=== PATIENT | female | born 1965 | race African-American/Black ===

== ENCOUNTER → 2020-04-19 | Outpatient (CLI) | payer BC ==
--- NOTE | 2020-04-24 12:01 | SLEEP ---
DATE OF STUDY: 04/19/2020 HOME SLEEP STUDY REFERRING PHYSICIAN: Dr. Cassidy Thornton. The patient is a 54-year-old who weighs 185 pounds with a BMI of 32.8. The patient's Hovland score was 9. The patient underwent home sleep study performed at [facility]. Total recording time was 480 minutes. During the night study, the patient had 4 obstructive apneas, 103 mixed apneas and no central apneas. The patient is 38 hypopneas. The patient's AHI was 21.3 per hour. Nocturnal oximetry study revealed an average oxygen saturation of 95% with lowest of 85%. Only 1 minute were spent with oxygen saturation of less than 90%. Mean heart rate 69 beats per minute. IMPRESSION: 1. Moderate obstructive sleep apnea at an AHI of 21 per hour. 2. No clinically significant nocturnal hypoxia. RECOMMENDATIONS: 1. The patient would benefit from treatment of sleep apnea with either CPAP versus oral appliance. 2. Once the patient is optimally treated, then follow up in 4-6 weeks to assess compliance and to document clinical improvement. 3. Weight loss is advised. 4. Avoid [employer] depressants. 5. Cautioned regarding driving until symptoms of sleep apnea resolve with above recommendations. JORGE ALBERTO SAEZ MD DR: JODY/taylor JOB#: [id number] / [id number] Dr. Cassidy Gonzales
== END ==
LOC: RT 09:30
PROVIDERS: ATTEND Family Medicine
DX: G47.33 Obstructive sleep apnea (adult) (pediatric) (principal)
CPT/HCPCS: G0399